=== PATIENT | male | born 1940 | race Caucasian/White ===

== ENCOUNTER → 2021-03-23 08:17 | Outpatient (CLI) | payer MEDICARE, SELFPAY ==
--- NOTE | 2021-03-23 08:19 | DI.ECHO.S_ITS ---
[facility] +---------+ : : [address] : [address] : : : : [id number] : : : : Phone: [phone]---------+ Echocardiogram Report + + :Name: BRANT LAWLER Study Date: 03/23/2021 Height: 70 in : :[facility] ReadingLocation: Weight: 340 lb : : Gender: Male BSA: 2.6 m2 : :: 1940 Age: 80 yrs BP: 147/79 mmHg: :Reason For Study: SOB : :Ordering Physician: ANICETO, : :MARY Alfaro Performed By: Boaz Mcdermott : :Referring: MARY BRIDGES : + + Interpretation Summary The ejection fraction is estimated to be 55-60%. Unable to grade diastolic function. Normal right ventricular systolic function. No significant valvular abnormalities. Unable to estimate PASP. Compared to the prior study dated 09/24/2014, slight improvement in the biventricular function. Procedure: A two-dimensional transthoracic echocardiogram with color flow and Doppler was performed. The study quality was technically adequate. Comparison is made with the echocardiogram of 09/24/14. Left Ventricle: The left ventricle is normal in size and wall thickness. Left ventricular systolic function is normal. The ejection fraction is estimated to be 55-60%. There are no focal wall motion abnormalities. Diastolic function could not be accurately assessed due to unobtainable data. Right Ventricle: The right ventricle is normal in size and function. Atria: Both atria are normal in size. There is no Doppler evidence for an interatrial shunt. Mitral Valve: The mitral valve is normal in structure and function. There is no mitral regurgitation noted. Aortic Valve: The aortic valve is not well visualized. The aortic valve opens well. No aortic regurgitation is present. Tricuspid Valve: The tricuspid valve is normal in structure and function. No tricuspid regurgitation. Pulmonary artery pressures cannot be estimated because of the lack of a measurable TR jet velocity but the IVC suggests a CVP of around 8 mmHg. Pulmonic Valve: The pulmonic valve is not well seen, but is grossly normal. There is no pulmonic valvular regurgitation. Great Vessels: The aortic root is normal size. The ascending aorta is mildly enlarged. The IVC is dilated (diameter is greater than 2.1 cm) yet it collapses greater than 50% with a sniff. This suggests a right atrial pressure of 8 mm Hg. Pericardium/ Pleura There is no pericardial effusion. There is no pleural effusion. MMode/2D Measurements & Calculations LVIDd: 5.6 cm LVOT diam: 2.3 cm LVIDs: 4.0 cm Ao root diam: 3.8 cm FS: 28.6 % asc Aorta Diam: 3.9 cm IVSd: 1.0 cm LVPWd: 1.2 cm LV parker. diameter/BSA (cm/m^2): 2.1 LV sys. diameter/BSA (cm/m^2): 1.5 LA dimension: 3.7 cm RA long axis: 5.7 cm LA A2 area: 15.4 cm2 LA A4 area: 20.0 cm2 LA length (vol): 5.6 cm LA vol: 46.4 ml LA vol index: 17.8 ml/m2 TAPSE_phl: 2.3 cm Doppler Measurements & Calculations Ao V2 max: 204.0 cm/sec LVOT Max Maicol: 122.0 cm/sec Ao V2 mean: 129.0 cm/sec LV V1 max P.0 mmHg Ao max P.0 mmHg LV V1 VTI: 21.2 cm Ao mean P.0 mmHg ANA(I,D): 3.5 cm2 Ao V2 VTI: 25.5 cm ANA(V,D): 2.5 cm2 sev ratio: 0.83 ANA indexed to BSA (cm^2/m^2): 1.3 MV E max maicol: 84.8 cm/sec PA V2 max: 121.0 cm/sec MV A max maicol: 113.0 cm/sec PA V2 mean: 85.6 cm/sec MV E/A: 0.75 PA mean P.0 mmHg Med Peak E' Maicol: 6.2 cm/sec PA pr(Accel): 60.1 mmHg E/E' med: 13.7 Lat Peak E' Maicol: 7.2 cm/sec E/E' lat: 11.7 E/e' average: 12.7 MV dec time: 0.19 sec SV(LVOT): 88.1 ml AV VR_phl: 0.60 ANA(VTI)/BSA_phl: 1.3 MV P1/2t-pr_phl: 57.0 msec Reading Physician:[id number] PM
[2021-03-23 11:32] LABS: COVID19 -Nasal RAPID Negative (Negative)
--- NOTE | 2021-03-25 04:22 | DI.NM.S_ITS ---
DATE OF SERVICE: PROCEDURE: Pharmacological perfusion study. DATE OF STUDY: 03/23/2021. INDICATIONS: Shortness of breath with underlying diabetes mellitus, hypertension and hyperlipidemia. RADIOPHARMACEUTICAL: 26.0 millicurie technetium-99m Myoview IV was injected at stress and 25.3 millicurie technetium-99m Myoview IV was injected at rest. CARDIAC STRESS: The patient underwent IV Lexiscan perfusion study under the supervision of an attending staff. The patient also walked on low level at 1 mile/hour speed. The patient had dyspnea and fatigue. Baseline rhythm was sinus with mild sinus tachycardia, diffuse low-voltage complexes, as well as QS complexes in inferior leads and poor R-wave progression in anterior leads. During stress there were no convincing new ischemic changes. There were no new significant sustained arrhythmias. RAW DATA: There is increased subdiaphragmatic activity. The patient's weight is 333 pounds. GATED STUDY: Resting LV ejection fraction 66 percent and stress LV ejection fraction 73 percent. Resting end-diastolic volume 121 mL. TID ratio 1.07 which is within normal limits. Lung/heart ratio 0.23, which is within normal limits. MYOCARDIAL PERFUSION SCAN: Stress supine and resting supine images were compared to each other. There were no prone images. However, stress supine and resting supine images appear to have normal myocardial perfusion. I do not see any significant perfusion defect. CONCLUSION: I will call this study a normal myocardial perfusion study. Left ventricular function is preserved. The patient has mild sinus tachycardia at baseline. Diffuse low-voltage complexes with impression of old inferior wall MT and anterior wall MT on EKG, however, based on this perfusion scan, this could be due to profound chest wall obesity as weight is 333 pounds. The patient had a perfusion scan in July 2009 and at that time the patient had reversible ischemia of inferior wall, inferior lateral wall and mid to distal anterior wall suggestive of multivessel coronary artery disease. However, in this study, no obvious perfusion defects seen. DiazPepito oropeza - [facility]EN[facility]/lon/shahrzad doc#: [id number]/job#: [id number] dd: 03/24/2021 17:35:00 dt: 03/25/2021 04:00:00 DICTATING MD/COPIES TO: Meena Cornell MD COPIES MNE: JED;
== END ==
PROVIDERS: PCP Internal Medicine; Referring Provider Internal Medicine Cardiovascular Disease; Visit Provider Internal Medicine Cardiovascular Disease
DX: R06.02 Shortness of breath (principal); I77.89 Other specified disorders of arteries and arterioles; E11.9 Type 2 diabetes mellitus without complications; I10 Essential (primary) hypertension; E78.5 Hyperlipidemia, unspecified; Z20.822 Contact with and (suspected) exposure to COVID-19; E66.9 Obesity, unspecified
CPT/HCPCS: 78452; 87635; 93017; 93306; A9502; J2785